=== PATIENT | male | born 2000 | race Hispanic/Latino ===

== ENCOUNTER 2022-09-14 13:49 | Emergency (ER) | payer OTHER ==
[2022-09-14] MEDS ORDERED: Ketorolac Tromethamine 30 MG/ML VIAL ONE (14:46)
== END 2022-09-14 14:51 | disposition home or self-care (01) ==
LOC: ERS 13:49
DX: M54.50 Low back pain, unspecified (principal); Y99.0 Civilian activity done for income or pay
CPT/HCPCS: 96372; 99283; J1885